=== PATIENT | male | born 1970 | race Two or more races ===

== ENCOUNTER 2017-04-30 17:14 | Emergency (ER) | payer SELFPAY ==
[~2017-04-30] VITALS: Ht 165.1 cm; Wt 86.2 kg
[2017-04-30 17:51] VITALS: BP 165/109
== END 2017-05-01 02:15 | disposition home or self-care (01) ==
LOC: ER 17:25
DX: K46.9 Unspecified abdominal hernia without obstruction or gangrene (principal)
CPT/HCPCS: 76870